=== PATIENT | female | born 1930 | race Caucasian/White ===

== ENCOUNTER 2017-12-06 16:47 | Inpatient (IN) | payer OTHER ==
[~2017-12-06] VITALS: Ht 154.9 cm; Wt 55.7 kg
[~2017-12-06 16:47] MED LIST: ASCO10004 PO; AZIT500T5 PO; CALC0.25 PO; CEFD300C37 PO; CEFU500T PO; CIPR500T3 PO; CLOP75TA52 PO; DIVA125T2 PO; DONE10TA14 PO; DOXY100C2 PO; ENOX30SY4 SQ; FOLI-17 PO; HYDR-3240 PO; HYDR12.53 PO; HYDR12.58 PO; LEVE100020 PO; LEVO75TA PO; LEVO75TA5 PO; LEVO88TA2 PO; LORA-446 PO; METO25TA35 PO; MIRT15TA4 PO; MIRT15TA6 PO; OMEP-110 PO; ONDA4TAB10 PO; OXYC1TAB7 PO; PANT40TA3 PO; PHEN100C PO; PHEN100C4 PO; POLY17PO5 PO; SENN1TAB11 PO; SENN1TAB8 PO; TRAM-47 PO
[2017-12-06] MEDS ORDERED: ONDANSETRON ODT 4 MG ONE (17:49)
[2017-12-06] MEDS ORDERED: MORPHINE SULFATE 4 MG/ML, 1ML ONE (17:49)
[2017-12-06 17:57] LABS: BASOPHILS # (AUTO) 0.01 x10^3/uL (0-0.1); BASOPHILS % (AUTO) 0 % (0-1); EOSINOPHILS # (AUTO) 0.02 x10^3/uL (0-0.4); EOSINOPHILS % (AUTO) 0 % (1-7); LYMPHOCYTES # (AUTO) 0.95 x10^3/uL (1-3.4); LYMPHOCYTES % (AUTO) 7 % (22-44); MD NO; MEAN CORPUSCULAR HEMOGLOBIN 33.6 pg (27.0-34.8); MEAN CORPUSCULAR HGB CONC 34.8 g/dL (32.4-35.8); MEAN CORPUSCULAR VOLUME 96.5 fL (80-100); MEAN PLATELET VOLUME 8.1 fL (7.4-10.4); MONOCYTES # (AUTO) 0.67 x10^3/uL (0.2-0.8); MONOCYTES % (AUTO) 5 % (2-9); NEUTROPHILS # (AUTO) 12.08 x10^3/uL (1.8-6.8); NEUTROPHILS % (AUTO) 88 % (42-75); PLATELET COUNT 241 x10^3/uL (130-400); RED BLOOD COUNT 4.13 x10^6/uL (3.82-5.3); RED CELL DISTRIBUTION WIDTH 13.4 % (9.6-15.2)
[2017-12-06] MEDS ORDERED: MORPHINE SULFATE 4 MG/ML, 1ML IVPush PRN (18:00)
[2017-12-06] MEDS ORDERED: ONDANSETRON ODT 4 MG PO ONE (18:00)
[2017-12-06 18:05] LABS: ALBUMIN 3.9 g/dL (3.4-5.0); ANION GAP 9 mmol/L (5-15); CALCIUM 9.3 mg/dL (8.5-10.1); CHLORIDE 110 mmol/L (98-107)
[2017-12-06 18:10] LABS: ALANINE AMINOTRANSFERASE 19 U/L (12-78); ALKALINE PHOSPHATASE 74 U/L (45-117); BILIRUBIN,TOTAL 1.2 mg/dL (0.2-1.0); CREATININE 1.29 mg/dL (0.55-1.02); TOTAL PROTEIN 7.7 g/dL (6.4-8.2)
[2017-12-06] MEDS ORDERED: SODIUM CHLORIDE FLUSH 10ML SYR IVF ONE (18:30)
[2017-12-06] MEDS ORDERED: POLYETHYLENE GLYCOL 17 GM PACKET PO PRN (19:00)
[2017-12-06] MEDS ORDERED: ONDANSETRON 2MG/ML, 2ML IVPush PRN (19:00)
[2017-12-06] MEDS ORDERED: BISACODYL 10 MG SUPP PR PRN (19:00)
[2017-12-06 19:58] VITALS: BP 147/61
[2017-12-06] MEDS: SODIUM CHLORIDE 0.9% 1,000 ML IV SCH (22:41)
[2017-12-06] MEDS: LEVETIRACETAM 500 MG TABLET PO SCH (22:59)
[2017-12-06] MEDS: HEPARIN 5,000 UNITS/ML, 1ML SQ SCH (23:00)
[2017-12-07 02:50] VITALS: BP 134/70
[2017-12-07] MEDS: HEPARIN 5,000 UNITS/ML, 1ML SQ SCH ×3 (03:00→19:00)
[2017-12-07 03:18] LABS: CULTURE INDICATED? YES; MICROSCOPIC INDICATED
[2017-12-07 05:46] LABS: CHLORIDE 112 mmol/L (98-107)
[2017-12-07 05:51] LABS: BASOPHILS # (AUTO) 0.02 x10^3/uL (0-0.1); BASOPHILS % (AUTO) 0 % (0-1); EOSINOPHILS # (AUTO) 0.01 x10^3/uL (0-0.4); EOSINOPHILS % (AUTO) 0 % (1-7); LYMPHOCYTES # (AUTO) 1.12 x10^3/uL (1-3.4); LYMPHOCYTES % (AUTO) 13 % (22-44); MD NO; MEAN CORPUSCULAR HEMOGLOBIN 33.5 pg (27.0-34.8); MEAN CORPUSCULAR HGB CONC 34.6 g/dL (32.4-35.8); MEAN CORPUSCULAR VOLUME 96.7 fL (80-100); MONOCYTES # (AUTO) 0.81 x10^3/uL (0.2-0.8); MONOCYTES % (AUTO) 10 % (2-9); NEUTROPHILS # (AUTO) 6.53 x10^3/uL (1.8-6.8); NEUTROPHILS % (AUTO) 77 % (42-75); PLATELET COUNT 210 x10^3/uL (130-400); RED BLOOD COUNT 3.47 x10^6/uL (3.82-5.3); RED CELL DISTRIBUTION WIDTH 13.4 % (9.6-15.2)
[2017-12-07 06:01] LABS: ALANINE AMINOTRANSFERASE 22 U/L (12-78); ALBUMIN 3.4 g/dL (3.4-5.0); ALKALINE PHOSPHATASE 64 U/L (45-117); ANION GAP 6 mmol/L (5-15); BILIRUBIN,TOTAL 1.1 mg/dL (0.2-1.0); CALCIUM 8.1 mg/dL (8.5-10.1); CREATININE 1.31 mg/dL (0.55-1.02); TOTAL PROTEIN 6.9 g/dL (6.4-8.2)
[2017-12-07] MEDS: LEVETIRACETAM 500 MG TABLET PO SCH ×2 (07:00→21:48)
[2017-12-07] MEDS: SENNA/DOCUSATE TABLET PO SCH (07:43)
[2017-12-07] MEDS: DIVALPROEX 125 MG TABLET.DR PO SCH (07:43)
[2017-12-07] MEDS: LEVOTHYROXINE 75 MCG TABLET PO SCH (07:43)
[2017-12-07] MEDS ORDERED: LEVETIRACETAM 100 MG/ML, 5ML IV SCH (08:00)
[2017-12-07] MEDS: LEVETIRACETAM 500 MG in SODIUM CHLORIDE 0.9% 100 ML IV SCH ×2 (08:07→21:46)
[2017-12-07 09:02] VITALS: BP 125/80
[2017-12-07] MEDS: VALPROATE SODIUM IV SCH (10:41)
[2017-12-07] MEDS: DEXTROSE 5% IV SCH (10:41)
[2017-12-07] MEDS ORDERED: PHENYLEPHRINE 10 MG/ML ONE (10:57)
[2017-12-07] MEDS ORDERED: DEXAMETHASONE 4 MG/ML, 1ML ONE (10:57)
[2017-12-07] MEDS: morphine SULFATE 10 MG/ML, 1ML IVPush PRN (12:12)
[2017-12-07 13:21] VITALS: BP 132/64
[2017-12-07] MEDS: SODIUM CHLORIDE 0.9% 1,000 ML IV SCH (15:00)
[2017-12-07] MEDS ORDERED: FENTANYL PF 100 MCG/2ML ONE ×2 (16:13→18:11)
[2017-12-07] MEDS ORDERED: PROPOFOL 10 MG/ML, 20ML ONE (16:27)
[2017-12-07] MEDS ORDERED: CEFAZOLIN 1,000 MG ONE (16:36)
[2017-12-07] MEDS ORDERED: ONDANSETRON 2MG/ML, 2ML ONE (16:46)
[2017-12-07] MEDS ORDERED: MORPHINE SULFATE 4 MG/ML, 1ML IVPush PRN (17:00)
[2017-12-07] MEDS ORDERED: hydrALAzine 20 MG/ML, 1ML IV PRN (17:00)
[2017-12-07] MEDS ORDERED: HYDROcodone/APAP 7.5-325MG/15ML UDC PO PRN (17:00)
[2017-12-07] MEDS ORDERED: ACETAMINOPHEN 325 MG TABLET PO PRN (17:00)
[2017-12-07] MEDS ORDERED: LABETALOL 5MG/ML, 20ML IV PRN (17:00)
[2017-12-07] MEDS ORDERED: ONDANSETRON 2MG/ML, 2ML IV PRN (17:00)
[2017-12-07] MEDS: FENTANYL PF 100 MCG/2ML IV PRN ×4 (18:00→18:33)
[2017-12-07 19:45] VITALS: BP 129/73
[2017-12-08] MEDS: CEFAZOLIN PMX 1GM/50ML 50 ML IVPB SCH ×2 (00:11→09:05)
[2017-12-08 00:17] VITALS: BP 107/57
[2017-12-08] MEDS ORDERED: SODIUM CHLORIDE 0.9%, 250ML IVBOLUS ONE (00:30)
[2017-12-08] MEDS: morphine SULFATE 10 MG/ML, 1ML IVPush PRN ×3 (01:06→22:56)
[2017-12-08 04:24] VITALS: BP 131/59
[2017-12-08] MEDS: HEPARIN 5,000 UNITS/ML, 1ML SQ SCH ×3 (06:20→22:57)
[2017-12-08] MEDS: LEVETIRACETAM 500 MG TABLET PO SCH ×2 (07:00→19:00)
[2017-12-08] MEDS: LEVETIRACETAM 500 MG in SODIUM CHLORIDE 0.9% 100 ML IV SCH ×2 (07:35→16:57)
[2017-12-08 07:42] VITALS: BP 115/68
[2017-12-08 07:50] LABS: CALCIUM 7.6 mg/dL (8.5-10.1); CHLORIDE 115 mmol/L (98-107); CREATININE 1.16 mg/dL (0.55-1.02)
[2017-12-08 08:00] LABS: ANION GAP 8 mmol/L (5-15); BASOPHILS # (AUTO) 0.01 x10^3/uL (0-0.1); BASOPHILS % (AUTO) 0 % (0-1); EOSINOPHILS # (AUTO) 0.02 x10^3/uL (0-0.4); EOSINOPHILS % (AUTO) 0 % (1-7); LYMPHOCYTES # (AUTO) 0.66 x10^3/uL (1-3.4); LYMPHOCYTES % (AUTO) 9 % (22-44); MD NO; MEAN CORPUSCULAR HGB CONC 34.2 g/dL (32.4-35.8); MEAN CORPUSCULAR VOLUME 96.5 fL (80-100); MONOCYTES # (AUTO) 0.68 x10^3/uL (0.2-0.8); MONOCYTES % (AUTO) 9 % (2-9); NEUTROPHILS # (AUTO) 5.89 x10^3/uL (1.8-6.8); NEUTROPHILS % (AUTO) 81 % (42-75); PLATELET COUNT 162 x10^3/uL (130-400); RED CELL DISTRIBUTION WIDTH 13.6 % (9.6-15.2)
[2017-12-08] MEDS ORDERED: OXYcodone/APAP 5/325MG TABLET PO PRN (08:00)
[2017-12-08] MEDS: SENNA/DOCUSATE TABLET PO SCH (09:00)
[2017-12-08] MEDS: LEVOTHYROXINE 75 MCG TABLET PO SCH (09:00)
[2017-12-08] MEDS: DIVALPROEX 125 MG TABLET.DR PO SCH (09:00)
[2017-12-08] MEDS: DEXTROSE 5% IV SCH ×2 (09:00→16:10)
[2017-12-08] MEDS: VALPROATE SODIUM IV SCH ×2 (09:00→16:10)
[2017-12-08] MEDS: ACETAMINOPHEN 500 MG TABLET PO SCH ×2 (12:30→19:30)
[2017-12-08 12:56] VITALS: BP 169/73
[2017-12-08] MEDS: IRON SUCROSE COMPLEX 100MG/5ML IV SCH (16:57)
[2017-12-08] MEDS ORDERED: SODIUM CHLORIDE 0.9% 1,000 ML IV SCH (18:43)
[2017-12-08 19:33] VITALS: BP 112/63
[2017-12-09] MEDS: ACETAMINOPHEN 500 MG TABLET PO SCH ×6 (00:24→23:08)
[2017-12-09 02:28] VITALS: BP 124/53
[2017-12-09 05:04] LABS: BASOPHILS # (AUTO) 0.02 x10^3/uL (0-0.1); BASOPHILS % (AUTO) 0 % (0-1); EOSINOPHILS % (AUTO) 0 % (1-7); LYMPHOCYTES # (AUTO) 1.13 x10^3/uL (1-3.4); LYMPHOCYTES % (AUTO) 14 % (22-44); MD NO; MEAN CORPUSCULAR HEMOGLOBIN 33.7 pg (27.0-34.8); MEAN CORPUSCULAR HGB CONC 34.9 g/dL (32.4-35.8); MEAN CORPUSCULAR VOLUME 96.3 fL (80-100); MEAN PLATELET VOLUME 8.5 fL (7.4-10.4); MONOCYTES # (AUTO) 0.87 x10^3/uL (0.2-0.8); MONOCYTES % (AUTO) 11 % (2-9); NEUTROPHILS # (AUTO) 6.01 x10^3/uL (1.8-6.8); NEUTROPHILS % (AUTO) 75 % (42-75); PLATELET COUNT 163 x10^3/uL (130-400); RED BLOOD COUNT 2.82 x10^6/uL (3.82-5.3); RED CELL DISTRIBUTION WIDTH 13.7 % (9.6-15.2)
[2017-12-09 05:11] LABS: CHLORIDE 115 mmol/L (98-107)
[2017-12-09 05:15] LABS: ANION GAP 8 mmol/L (5-15); CALCIUM 7.9 mg/dL (8.5-10.1); CREATININE 1.02 mg/dL (0.55-1.02)
[2017-12-09] MEDS: HEPARIN 5,000 UNITS/ML, 1ML SQ SCH ×3 (05:45→23:01)
[2017-12-09] MEDS: LEVETIRACETAM 500 MG in SODIUM CHLORIDE 0.9% 100 ML IV SCH (05:45)
[2017-12-09] MEDS: LEVETIRACETAM 500 MG TABLET PO SCH ×2 (05:46→18:39)
[2017-12-09 08:06] VITALS: BP 139/67
[2017-12-09] MEDS: DEXTROSE 5% IV SCH (09:00)
[2017-12-09] MEDS ORDERED: DEXTROSE 5% IV SCH (09:00)
[2017-12-09] MEDS: DIVALPROEX 125 MG TABLET.DR PO SCH ×2 (09:00→11:46)
[2017-12-09] MEDS: VALPROATE SODIUM IV SCH (09:00)
[2017-12-09] MEDS ORDERED: VALPROATE SODIUM IV SCH (09:00)
[2017-12-09] MEDS: IRON SUCROSE COMPLEX 100MG/5ML IV SCH (11:46)
[2017-12-09] MEDS: SENNA/DOCUSATE TABLET PO SCH (11:46)
[2017-12-09] MEDS: LEVOTHYROXINE 75 MCG TABLET PO SCH (11:47)
[2017-12-09] MEDS: ACETAMINOPHEN 325 MG TABLET PO PRN (11:47)
[2017-12-09 13:12] VITALS: BP 120/66
[2017-12-09] MEDS: morphine SULFATE 10 MG/ML, 1ML IVPush PRN (15:44)
[2017-12-09] MEDS: OXYcodone IR 5MG TABLET PO PRN (18:39)
[2017-12-09 19:25] VITALS: BP 105/57
[2017-12-10 01:34] VITALS: BP 135/66
[2017-12-10] MEDS: ACETAMINOPHEN 325 MG TABLET PO PRN (04:33)
[2017-12-10] MEDS: OXYcodone IR 5MG TABLET PO PRN ×3 (04:33→18:47)
[2017-12-10] MEDS: morphine SULFATE 10 MG/ML, 1ML IVPush PRN (05:01)
[2017-12-10] MEDS: HEPARIN 5,000 UNITS/ML, 1ML SQ SCH ×2 (06:42→18:45)
[2017-12-10 08:01] VITALS: BP 127/52
[2017-12-10] MEDS: IRON SUCROSE COMPLEX 100MG/5ML IV SCH (09:00)
[2017-12-10] MEDS: SENNA/DOCUSATE TABLET PO SCH (10:45)
[2017-12-10] MEDS: ACETAMINOPHEN 500 MG TABLET PO SCH ×3 (10:45→22:56)
[2017-12-10] MEDS: LEVETIRACETAM 500 MG TABLET PO SCH ×2 (10:45→20:10)
[2017-12-10] MEDS: DIVALPROEX 125 MG CAP.SPRINK PO SCH (10:45)
[2017-12-10] MEDS: LEVOTHYROXINE 75 MCG TABLET PO SCH (10:45)
[2017-12-10 20:18] VITALS: BP 146/63
[2017-12-11 01:54] VITALS: BP 157/73
[2017-12-11] MEDS: HEPARIN 5,000 UNITS/ML, 1ML SQ SCH ×2 (02:17→11:17)
[2017-12-11] MEDS: ACETAMINOPHEN 500 MG TABLET PO SCH ×3 (04:33→17:46)
[2017-12-11 08:19] VITALS: BP 151/70
[2017-12-11] MEDS: IRON SUCROSE COMPLEX 100MG/5ML IV SCH (09:00)
[2017-12-11] MEDS ORDERED: FERROUS SULFATE 325 MG TABLET ONE (11:10)
[2017-12-11] MEDS: DIVALPROEX 125 MG CAP.SPRINK PO SCH (11:14)
[2017-12-11] MEDS: SENNA/DOCUSATE TABLET PO SCH (11:14)
[2017-12-11] MEDS: OXYcodone IR 5MG TABLET PO PRN ×2 (11:14→17:46)
[2017-12-11] MEDS: FERROUS GLUCONATE 324 MG TABLET PO SCH ×2 (11:14→17:46)
[2017-12-11] MEDS: LEVOTHYROXINE 75 MCG TABLET PO SCH (11:14)
[2017-12-11] MEDS: LEVETIRACETAM 500 MG TABLET PO SCH (11:15)
[2017-12-11 15:06] VITALS: BP 168/70
[2017-12-11] MEDS ORDERED: HEPA50002 SQ (15:10)
[2017-12-11] MEDS ORDERED: POLY17PO5 PO (15:10)
[2017-12-11] MEDS ORDERED: FERR325T16 PO (15:10)
[2017-12-11] MEDS ORDERED: ACET500T71 PO (15:10)
[2017-12-11] MEDS ORDERED: DIVA125C2 PO (15:10)
== END 2017-12-11 18:16 | DRG 480 ==
LOC: ED 19:53 → 4NOR 19:55 → ED 20:03
PROVIDERS: ADMIT Hospitalist; ATTEND Hospitalist
PROC: 0T9B70Z Drainage of Bladder with Drainage Device, Via Natural or Artificial Opening (ICD-10-PCS; 2017-12-07)
PROC: 0QS636Z Reposition Right Upper Femur with Intramedullary Internal Fixation Device, Percutaneous Approach (ICD-10-PCS; principal; 2017-12-07 14:30)
DX: S72.141A Displaced intertrochanteric fracture of right femur, initial encounter for closed fracture (principal); N17.0 Acute kidney failure with tubular necrosis; D64.9 Anemia, unspecified; D72.829 Elevated white blood cell count, unspecified; E03.9 Hypothyroidism, unspecified; F02.80 Dementia in other diseases classified elsewhere, unspecified severity, without behavioral disturbance, psychotic disturbance, mood disturbance, and anxiety; F32.9 Major depressive disorder, single episode, unspecified; G30.9 Alzheimer's disease, unspecified; G40.909 Epilepsy, unspecified, not intractable, without status epilepticus; I10 Essential (primary) hypertension; I25.10 Atherosclerotic heart disease of native coronary artery without angina pectoris; R13.10 Dysphagia, unspecified; W18.30XA Fall on same level, unspecified, initial encounter; Y93.89 Activity, other specified; Y92.048 Other place in boarding-house as the place of occurrence of the external cause; Y99.8 Other external cause status; Z66 Do not resuscitate; Z86.73 Personal history of transient ischemic attack (TIA), and cerebral infarction without residual deficits; Z95.5 Presence of coronary angioplasty implant and graft; Z96.642 Presence of left artificial hip joint
CPT/HCPCS: 36415; 71045; 76000; 80048; 80053; 81001; 82728; 83540; 83550; 84466; 85025; 87086; 93005; C1713; G0378; J0690; J1100; J1644; J1756; J1953; J2405; J2704; J3010; Q0162; J2270; J2370; J7030; J7050